=== PATIENT | male | born 1975 | race Caucasian/White ===

== ENCOUNTER 2024-04-28 10:47 | Outpatient (CLI) | payer MEDICAID | END 2024-04-28 23:59 | disposition home or self-care (01) | LOC: RAD 10:47 | PROVIDERS: ATTEND Family Medicine | DX: N43.3 Hydrocele, unspecified (principal); N50.3 Cyst of epididymis; N50.811 Right testicular pain; Z77.29 Contact with and (suspected) exposure to other hazardous substances | CPT/HCPCS: 71046; 76870; 93976 ==